=== PATIENT | male | born 1965 | race Caucasian/White ===

== ENCOUNTER → 2020-08-27 | Outpatient (CLI) | payer MEDICARE ==
[2020-08-27 10:09] LABS: HEMATOCRIT 44 % (40-54); HEMOGLOBIN 14.6 G/DL (13.3-17.7); LYMPHOCYTES % (AUTO) 36 % (12-44); MEAN CORPUSCULAR HEMOGLOBIN 27 PG (25-34); MEAN CORPUSCULAR HGB CONC 33 G/DL (32-36); MEAN CORPUSCULAR VOLUME 81 FL (80-99); MEAN PLATELET VOLUME 9.2 FL (7.4-10.4); NEUTROPHILS % (AUTO) 46 % (42-75); PLATELET COUNT 292 10^3/uL (130-400); WHITE BLOOD COUNT 5.5 10^3/uL (4.3-11.0)
[2020-08-27 10:10] LABS: BASOPHILS # (AUTO) 0.1 10^3/uL (0.0-0.1); BASOPHILS % (AUTO) 1 % (0-10); EOSINOPHILS # (AUTO) 0.3 10^3/uL (0.0-0.3); EOSINOPHILS % (AUTO) 5 % (0-10); MONOCYTES # (AUTO) 0.6 X 10^3 (0.0-1.0); MONOCYTES % (AUTO) 11 % (0-12); NEUTROPHILS # (AUTO) 2.6 X 10^3 (1.8-7.8)
[2020-08-27 11:30] LABS: CARBON DIOXIDE 25 MMOL/L (21-32); CHLORIDE 102 MMOL/L (98-107); POTASSIUM 4.2 MMOL/L (3.6-5.0); SODIUM 138 MMOL/L (135-145)
[2020-08-27 11:31] LABS: ALANINE AMINOTRANSFERASE 30 U/L (0-55); ALBUMIN 4.1 GM/DL (3.2-4.5); ALKALINE PHOSPHATASE 73 U/L (40-136); BILIRUBIN,TOTAL 0.2 MG/DL (0.1-1.0); BUN/CREATININE RATIO 8; CALCIUM 9.5 MG/DL (8.5-10.1); CREATININE SERUM 0.95 MG/DL (0.60-1.30); GFR ESTIMATED > 60; GLUCOSE 236 MG/DL (70-105); TOTAL PROTEIN 7.3 GM/DL (6.4-8.2)
[2020-08-27 15:19] LABS: CHOLESTEROL 217 MG/DL (< 200); HDL CHOLESTEROL 44 MG/DL (40-60); TRIGLYCERIDES 267 MG/DL (<150); VLDL CHOLESTEROL 53 MG/DL (5-40)
== END ==
LOC: LAB FS 09:46
PROVIDERS: ATTEND Family Medicine
DX: E11.69 Type 2 diabetes mellitus with other specified complication (principal); E78.2 Mixed hyperlipidemia
CPT/HCPCS: 36415; 80053; 80061; 82043; 83036; 85025

== ENCOUNTER 2020-11-09 02:00 | Emergency (ER) | payer MEDICARE ==
[~2020-11-09] VITALS: Ht 180.3 cm; Wt 95.3 kg
--- NOTE | 2020-11-09 02:22 | ED Integumentary General ---
General Chief Complaint: Allergic Reaction Stated Complaint: RASH ON BOTH ARMS Nursing Triage Note: PT AMBULATE TO ROOM FS02 WITH C/O BILAT ARM RASH X4 DAYS. PT REPORTS TAKING [facility]EDRY[facility]. PT REPORTS PCP WROTE PRESCRIPTION ON MONDAY AND THAT THEY DID NOT PICK IT UP BECAUSE THE DID NOT THINK THE PHARMACY WAS OPEN ON [place]. Source: patient Exam Limitations: no limitations History of Present Illness Date Seen by Provider: Nov 09, 2020 Time Seen by Provider: 02:09 Initial Comments 55-year-old male with past medical history of diabetes and hypertension coming in due to rash on his arms and body. He states he used a new shampoo the other day and the rash showed up yesterday. Started taking Benadryl and it got better on his trunk but is continuing on his arms. Is very itchy and he has excoriations from how much she has been scratching at it. Has never had an allergic reaction like this before. Denies any fever or pus coming from the wounds. Is otherwise denying any chest pain, shortness of breath, nausea, vomiting, abdominal pain, weakness, numbness, or any other concerns. Allergies and Home Medications Patient Home Medication List Home Medication List Reviewed: Yes Review of Systems Review of Systems Constitutional: No chills EENTM: No blurred vision Respiratory: No short of breath Cardiovascular: No chest pain Gastrointestinal: No abdominal pain, No nausea, No vomiting Genitourinary: No dysuria Musculoskeletal: No back pain Skin: rash Psychiatric/Neurological: No Symptoms Reported Endocrine: No Symptoms Reported Hematologic/Lymphatic: No Symptoms Reported All Other Systems Reviewed Negative Unless Noted: Yes Past [id number] Hx Patient Social History Tobacco Use?: Yes Tobacco type used: Cigarettes Smoking Status: Current Everyday Smoker Substance use?: No Alcohol Use?: No Physical Exam Vital Signs Vital Signs - First Documented 11/09/20 02:06 Temp 36.4 Pulse 99 Resp 18 B/P (MAP) 160/131 (141) O2 Delivery Room Air Capillary Refill : Less Than 3 Seconds General Appearance: WD/WN, no apparent distress HEENT: PERRL/EOMI, normal ENT inspection, pharynx normal Neck: non-tender, full range of motion, supple, normal inspection Cardiovascular: regular rate, rhythm, no edema, no murmur Respiratory: chest non-tender, lungs clear, normal breath sounds, no respiratory distress, no accessory muscle use Gastrointestinal: normal bowel sounds, non tender, soft; No distended, No guarding, No rebound Back: normal inspection, no CVA tenderness, no vertebral tenderness Extremities: normal range of motion, non-tender, normal inspection, no pedal edema, no calf tenderness, normal capillary refill Neurologic/Psychiatric: no motor/sensory deficits, alert, normal mood/affect Skin: normal color, warm/dry, rash (Generalized macular rash to his bilateral upper extremities and partially on his trunk that is Nikolsky negative and blanchable, multiple excoriations that are deep with some areas with what appears to be early overlying cellulitis as well) Lymphatic: no adenopathy Progress/Results/Core Measures Results/Orders Vital Signs/I&O 11/09/20 02:06 Temp 36.4 Pulse 99 Resp 18 B/P (MAP) 160/131 (141) O2 Delivery Room Air Blood Pressure Mean: 141 Progress Progress Note : Progress Note 55-year-old male with above history coming in due to a rash. Did use a new soap the other day and it developed right afterwards. Very itchy to him. Does not have any red flags such as fever, genital involvement, oral involvement or other mucosal involvement, and is Nikolsky negative. It does appear to be likely allergic in nature to me with some areas from the excoriations with early overlying superinfection cellulitis. We will give him an antibiotic as well as a steroid. He can take Benadryl as needed for the itching. I believe he is stable for discharge. He was sent home with strict return precautions. I recommended to him if things do not improve, he develops any symptoms in his eyes, mouth, or genitals, he develops any systemic symptoms, or has any other concerns that he needs to come back to the ER. Departure Impression Primary Impression: Rash Additional Impression: Cellulitis Qualified Codes: L03.119 - Cellulitis of unspecified part of limb Disposition: 01 HOME, SELF-CARE Condition: Stable Departure-Patient Inst. Decision time for Depature: 02:21 Referrals: ITA VELA MD (PCP/Family) Primary Care Physician Patient Instructions: Skin Rash (DC), Cellulitis (Skin Infection), Adult ED Add. Discharge Instructions: You were seen in the emergency department for a rash which we think is likely allergic in nature. There does appear to be some areas that are developing infe ction over it as well from where you have been scratching at it. I have sent a steroid pack as well as antibiotics to [facility]. If you develop any fever, start spreading to your mouth, eyes, or your skin starts sloughing off, then please come back to the ER. All discharge instructions reviewed with patient and/or family. Voiced understanding. Scripts Prednisone (Prednisone) 20 Mg Tab 40 MG PO DAILY for 5 Days, #10 TAB 0 Refills Prov: CARLEEN RAM MD 11/09/20 Cephalexin (Cephalexin) 500 Mg Tablet 500 MG PO QID for 7 Days, #28 TAB Prov: CARLEEN RAM MD 11/09/20 CARLEEN RAM MD Nov 09, 2020 02:22
[2020-11-09] MEDS ORDERED: CEPH500T PO (02:24)
[2020-11-09] MEDS ORDERED: CEPHALEXIN 250 MG (KEFLEX) CAP PO STA (02:24)
[2020-11-09] MEDS ORDERED: PRD20T PO (02:24)
[2020-11-09] MEDS ORDERED: ACETAMINOPHEN 500 MG TAB (TYLENOL) PO ONE (02:30)
[2020-11-09] MEDS ORDERED: predniSONE 20 MG TAB PO ONE (02:30)
[2020-11-09 02:32] VITALS: BP 139/77
== END 2020-11-09 02:32 | disposition home or self-care (01) ==
LOC: EDUNIT# 02:00 → ER FS 02:02
DX: R21 Rash and other nonspecific skin eruption (principal); L03.114 Cellulitis of left upper limb; L03.113 Cellulitis of right upper limb; I10 Essential (primary) hypertension; E11.9 Type 2 diabetes mellitus without complications; F17.210 Nicotine dependence, cigarettes, uncomplicated
CPT/HCPCS: 99283